=== PATIENT | female | born 1975 | race African-American/Black ===

== ENCOUNTER 2023-02-14 00:50 | Emergency (ER) | payer OTHER ==
[~2023-02-14] VITALS: Ht 152.4 cm; Wt 184.2 kg
[2023-02-14 01:12] VITALS: BP 179/117; PULSE 109; RESP 18; TEMP 97.1; O2SAT 94
[2023-02-14] MEDS ORDERED: BACITRACIN OINT 500 UNITS/GM PKT TP ONE (03:10)
[2023-02-14] MEDS ORDERED: KETOROLAC 60 MG/2 ML VIAL IM ONE (03:10)
[2023-02-14] MEDS ORDERED: MORPHINE SULFATE 4 MG/ML SYR IM ONE (03:10)
[2023-02-14] MEDS ORDERED: ACET-8905 PO (03:25)
[2023-02-14] MEDS ORDERED: BACI-418 TP (03:25)
[2023-02-14] MEDS ORDERED: NAPR-54 PO (03:25)
[2023-02-14] MEDS ORDERED: NEOMYCIN/POLYMYXIN/BACITRACIN 0.9 GM/1 PKT TP ONE (03:30)
[2023-02-14 04:03] VITALS: BP 160/95; PULSE 100; RESP 18; TEMP 97.1; O2SAT 94
== END 2023-02-14 04:04 | disposition home or self-care (01) ==
LOC: MED 00:50
DX: T22.20XA Burn of second degree of shoulder and upper limb, except wrist and hand, unspecified site, initial encounter (principal); M79.7 Fibromyalgia; G89.29 Other chronic pain; Z98.890 Other specified postprocedural states; Z79.899 Other long term (current) drug therapy; Z79.1 Long term (current) use of non-steroidal anti-inflammatories (NSAID); Z88.8 Allergy status to other drugs, medicaments and biological substances; X12.XXXA Contact with other hot fluids, initial encounter; Y93.89 Activity, other specified; Y92.89 Other specified places as the place of occurrence of the external cause; Y99.8 Other external cause status
CPT/HCPCS: 16000; 96372; 99284; J1885; J2270